=== PATIENT | male | born 1940 | race Caucasian/White ===

== ENCOUNTER 2017-02-25 15:30 | Emergency (ER) | payer MEDICARE ==
[~2017-02-25] VITALS: Ht 177.8 cm; Wt 69.1 kg
[2017-02-25 15:39] VITALS: BP 120/72; PULSE 55; RESP 16; O2SAT 100
--- NOTE | 2017-02-25 16:55 | ED.REPORT ---
HPI-Chest Pain 40 and Over Date of Service Feb 25, 2017 ED Provider: Dane Conti MD Patient is a healthy 76 year old male who presents to the ED after being referred by urgent care complaining of 3-4/10 L sided chest pain onset last night that is exacerbated by movement. Associated symptoms include dizziness. He denies lightheadedness, SOB, nausea, vomiting, neck pain, back pain, extremity pain, or any other symptoms. Nursing Notes Stated Complaint: CHEST PAIN, SENT FROM URGENT CARE Chief Complaint: Chest Pain Nursing Notes Reviewed: Yes Allergies: Uncoded Allergies: PENICILLIN (Allergy, Mild, rash, 02/25/17) General Time Seen by MD: 16:54 Chief Complaint Chest pain Hx Obtained From: Patient Arrived By: Walk-in Sudden in Onset?: Yes Onset Occurred: Yesterday Similar Sx Previous: No Risk Factors )( CAD Risk Stratification No Diabetes mellitus, No Hyperlipidemia, No Hypertension, No Smoking Risk factors reviewed )( TAD Risk Stratification No Hypertension, No Risk factors reviewed )( PE Risk Stratification No Coagulation Disorder, No , No Previous DVT, No Surgery Last 60 Days Risk factors reviewed Past Medical History Past Medical History Healthy Denies: Renal insufficiency Past Surgical History Reports: Cholecystectomy Smoking History Never Smoker Social History Alcohol Use: Denies alcohol use Ambulatory Status Independent Review of Systems Respiratory: Denies: Shortness of breath Cardiovascular: Reports: Chest pain GI: Denies: Nausea, Vomiting Musculoskeletal: Denies: Back pain, Extremity pain, Neck pain Neurologic: Reports: Dizziness, Denies: Lightheaded Complete sys rev & neg: except as marked. Physical Exam Initial Vital Signs Vital Signs (First) Date Time Temp Pulse Resp B/P Pulse Ox O2 Delivery O2 Flow Rate FiO2 02/25/17 15:39 36.6 55 16 120/72 100 Room Air Initial VS: Reviewed Head / Eyes: Atraumatic, Normocephalic Neck: Full range of motion Skin: Warm, Dry Neurologic: Alert, Oriented, Nonfocal Psychiatric: Mood/affect normal, Behavior normal, Normal thought content General/Constitutional: Awake, Alert, Well developed Respiratory / Chest: Atraumatic, Breath sounds NL, Breath sounds = bilat, No respiratory distress Cardiovascular: Heart rate NL, Regular rhythm, Heart sounds NL, Peripheral circulation NL Abdomen: Atraumatic, Soft, Non-tender Interpretation & Diagnostics Lab Results Interpretation Result Diagram: 02/25/17 3968 02/25/17 1655 Test 02/25/17 16:55 White Blood Count 6.7th/mm3 (3.8-10.1) Red Blood Count 4.37mil/mm3 (4.40-5.80) Hemoglobin 13.7g/dL (13.8-17.2) Hematocrit 40.2% (41.0-50.0) Mean Corpuscular Volume 92.0fL (81-100) Mean Corpuscular Hemoglobin 31.4pg (27.0-35.0) Mean Corpuscular Hemoglobin Concent 34.1% (32.0-37.0) Red Cell Distribution Width 13.2% (12.3-15.4) Platelet Count 317bil/L (150-400) Neutrophils (%) (Auto) 58.5% (40-74) Lymphocytes (%) (Auto) 21.4% (14-46) Monocytes (%) (Auto) 9.4% (4-12) Eosinophils (%) (Auto) 10.0% (0-5) Basophils (%) (Auto) 0.6% (0-3) Sodium Level 138mEq/L (134-144) Potassium Level 4.0mEq/L (3.5-5.2) Chloride Level 102mEq/L (97-108) Carbon Dioxide Level 22mmol/L (18-29) Blood Urea Nitrogen 14mg/dL (8-27) Creatinine 0.57mg/dL (0.76-1.27) Estimat Glomerular Filtration Rate 147mL/min (>59) Glucose Level 96mg/dL (60-99) Calcium Level 9.9mg/dL (8.5-10.1) Magnesium Level 2.2mg/dL (1.6-2.6) Total Bilirubin 0.5mg/dL (0.0-1.2) Aspartate Amino Transf (AST/SGOT) 22U/L (0-50) Alanine Aminotransferase (ALT/SGPT) 19U/L (0-44) Alkaline Phosphatase 45U/L (25-160) Troponin T < 0.010ug/L (0.0-0.011) Total Protein 6.8g/dL (6.4-8.4) Albumin 4.1g/dL (3.4-5.0) Hold Yeager Top Tube Received (Received) ECG Interpretation ECG Interpretation: Sinus rate [address], T changes Time: 17:29 Interpreted by: ED physician X-Ray Chest Interpretation Chest Xray Interpretation: No acute disease View: Portable, 1 view Interpretation / Wet Read by: Interpret - ED physician Re-Eval/Medical Decision Med Decision/Clinical Course 76-year-old male presenting complaining of chest pain since last night. It feels like a muscle spasm. It is worse with movement. It is reproducible on exam. HEENT no EKG changes. Troponins are negative. Pain resolved with Toradol. Suspect musculoskeletal. Discussed with patient discharged home with plans to follow up with primary doctor return precautions. Time of Eval: 17:49 Re-Evaluation/Progress Note: Discussed plan for dishcarge. Patient understands and agrees with plan. All questions addressed at this time. Counseled Regarding: Diagnosis, Lab results, Need for follow-up, When/why to return to ED Discharge & Departure Primary Impression: Non-cardiac chest pain Disposition: Home Discharge Condition All VS Reviewed: Yes Condition: Improved Patient Instructions: Chest Pain (ED) Additional Instructions: Thank you for entrusting us with your care. Your labs and imaging results are reassuring. Follow up with your primary care provider in the next week. Return to the emergency department if you experience increased chest pain, shortness of breath, sweats, lightheadedness, or any other new or worsening symptoms. Referrals: Tommie Moya MD (PCP) Scribe Attestation Portions of this note were transcribed by Mack Polanco. I, Dr. Conti personally performed the history, physical exam and medical decision-making; I reviewed and confirmed the accuracy of the information in the transcribed note. Signed by: Mack Polanco 02/25/2017, [id number] copies to: Tommie Moay MD, Ben M MD Feb 25, 2017 16:55 MACK POLANCO Feb 25, 2017 17:21
[2017-02-25 17:09] LABS: BASOPHILS % (AUTO) 0.6 % (0-3); MONOCYTES % (AUTO) 9.4 % (4-12); Mean Corpuscular Hemoglobin 31.4 pg (27.0-35.0); NEUTROPHILS % (AUTO) 58.5 % (40-74); Platelet Count 317 bil/L (150-400)
[2017-02-25 17:43] LABS: Magnesium 2.2 mg/dL (1.6-2.6)
[2017-02-25 17:45] LABS: TROPONIN T < 0.010 ug/L (0.0-0.011)
[2017-02-25 18:19] VITALS: BP 125/59; PULSE 60; RESP 23; O2SAT 98
--- NOTE | 2017-02-26 06:01 | DRSVH ---
PROCEDURE: X-RAY CHEST ONE VIEW, PORTABLE ([id number]) INDICATIONS: chest pain TECHNIQUE: One view of the chest was acquired. COMPARISON: None. FINDINGS: Surgical changes and devices: None. Lungs and pleura: No pleural effusions or pneumothorax. No acute consolidation. 8mm nodular opacity projects in the right midlung region, indeterminate in the absence of prior studies.. Mediastinum: Mediastinal contours appear normal. Heart size is normal. Bones and chest wall: No suspicious bony lesions. Overlying soft tissues appear unremarkable. IMPRESSION: Subcentimeter nodular opacity projecting in the right midlung. This is indeterminate in the absence p rior studies. Recommend followup with three-month interval PA and lateral chest radiographs evaluate for pulmonary nodule, or at clinical discretion, noncontrast chest CT could be performed. No acute disease Dictated by: Isaiah Valverde M.D. on 02/25/2017 at 16:31 Approved by: Isaiah Valverde M.D. on 02/25/2017 at 16:33
== END 2017-02-25 18:30 | disposition home or self-care (01) ==
LOC: SED 15:30
DX: R07.89 Other chest pain (principal); R42 Dizziness and giddiness; Z88.0 Allergy status to penicillin
CPT/HCPCS: 36415; 71010; 80053; 83735; 84484; 85025; 93005; 96374; 99285; G0463; J1885